=== PATIENT | male | born 1990 | race Caucasian/White ===

== ENCOUNTER 2017-02-11 16:17 | Emergency (ER) | payer MEDICAID ==
[~2017-02-11] VITALS: Ht 170.2 cm; Wt 86.0 kg
[2017-02-11] MEDS ORDERED: HYDROCODONE/ACETAMINOPHEN 5/325MG TABLET PO ONE (17:00)
[2017-02-11] MEDS ORDERED: DIAZEPAM 5 MG TABLET PO ONE (17:00)
[2017-02-11 17:22] VITALS: BP 105/65
[2017-02-11] MEDS ORDERED: METHOCARBAMOL 500MG TABLET PO ONE (18:00)
== END 2017-02-11 19:20 | disposition home or self-care (01) ==
LOC: ER 16:17
DX: M54.5 Low back pain (principal); M54.30 Sciatica, unspecified side; G89.29 Other chronic pain; F12.10 Cannabis abuse, uncomplicated
CPT/HCPCS: 72100; 99284

== ENCOUNTER 2017-11-25 16:36 | Emergency (ER) | payer MEDICAID ==
[~2017-11-25] VITALS: Ht 177.8 cm; Wt 114.0 kg
[2017-11-25 16:45] VITALS: BP 118/76
== END 2017-11-25 21:07 | disposition left against medical advice (07) ==
LOC: ER 16:45
DX: M79.602 Pain in left arm (principal); Z53.21 Procedure and treatment not carried out due to patient leaving prior to being seen by health care provider

== ENCOUNTER 2019-08-23 12:47 | Emergency (ER) | payer OTHER ==
[~2019-08-23] VITALS: Ht 185.4 cm; Wt 95.0 kg
[2019-08-23] MEDS ORDERED: KETOROLAC 15MG/ML VIAL IV ONE (14:15)
[2019-08-23] MEDS ORDERED: SODIUM CHLORIDE 0.9% 1,000 ML IV ONE (14:15)
[2019-08-23] MEDS ORDERED: LEVETIRACETAM 1000MG/100ML 100 ML IV ONE (14:15)
[2019-08-23 14:30] VITALS: BP 113/63
== END 2019-08-23 15:30 | disposition home or self-care (01) ==
LOC: ER 12:47
DX: G40.909 Epilepsy, unspecified, not intractable, without status epilepticus (principal); S00.83XA Contusion of other part of head, initial encounter; R51 Headache; X58.XXXA Exposure to other specified factors, initial encounter; Y93.89 Activity, other specified; Y92.9 Unspecified place or not applicable
CPT/HCPCS: 96365; 96375; 99283; J1885; J1953; J7030

== ENCOUNTER 2020-12-03 03:22 | Emergency (ER) | payer OTHER ==
[~2020-12-03] VITALS: Ht 170.2 cm; Wt 73.0 kg
[2020-12-03 03:36] VITALS: BP 140/55
[2020-12-03] MEDS ORDERED: ACETAMINOPHEN 325MG TABLET PO ONE (04:00)
== END 2020-12-03 05:00 | disposition home or self-care (01) ==
LOC: ER 03:22
DX: M79.642 Pain in left hand (principal); F17.290 Nicotine dependence, other tobacco product, uncomplicated; F12.10 Cannabis abuse, uncomplicated
CPT/HCPCS: 73130; 99283

== ENCOUNTER 2022-03-16 15:20 | Emergency (ER) | payer MEDICAID, OTHER ==
[~2022-03-16] VITALS: Ht 175.3 cm; Wt 104.0 kg
[2022-03-16 15:21] VITALS: BP 124/77
[2022-03-16] MEDS ORDERED: LEVETIRACETAM 500MG PREMIX 100 ML IV ONE (15:45)
[2022-03-16 16:17] LABS: BASOPHILS % 0.5 % (0.0-2.0); EOSINOPHILS % 0.8 % (0.0-5.0); HEMOGLOBIN. 15.6 g/dL (14.0-18.0); LYMPHOCYTES % 14.8 % (20.0-50.0); MEAN CORPUSCULAR HEMOGLOBIN 29.5 pg (28.0-32.0); MEAN CORPUSCULAR VOLUME 88.8 fL (80.0-94.0); MEAN PLATELET VOLUME 9.2 fl (7.4-10.4); MONOCYTES % 6.3 % (2.0-8.0); NEUTROPHILS % 77.6 % (40.0-76.0); PLATELET 313 x1000/uL (130-400); RED CELL DISTRIBUTION WIDTH 14.1 % (11.6-14.6)
[2022-03-16 16:26] LABS: CHLORIDE 106 mEq/L (98-107)
[2022-03-16 16:31] LABS: ETHANOL BLOOD < 10 mg/dL
[2022-03-16] MEDS ORDERED: KEPP500 MT (17:03)
[2022-03-16] MEDS ORDERED: LEVETIRACETAM 500MG PREMIX 100 ML IV NR (18:00)
== END 2022-03-16 18:49 ==
LOC: ER 15:20
DX: G40.909 Epilepsy, unspecified, not intractable, without status epilepticus (principal); R94.31 Abnormal electrocardiogram [ECG] [EKG]; F12.10 Cannabis abuse, uncomplicated
CPT/HCPCS: 36415; 80053; 80320; 85025; 93005; 96365; 99284; J1953; G0480

== ENCOUNTER 2025-05-23 22:16 | Emergency (ER) | payer MEDICAID ==
[~2025-05-23] VITALS: Ht 172.7 cm; Wt 95.0 kg
[~2025-05-23 22:16] MED LIST: KEPP500 MT
[2025-05-23 22:17] VITALS: BP 162/96; PULSE 110; RESP 16; TEMP 36.8; O2SAT 98
== END 2025-05-24 01:45 | disposition left against medical advice (07) ==
LOC: ER 22:16
DX: M79.604 Pain in right leg (principal); Z53.21 Procedure and treatment not carried out due to patient leaving prior to being seen by health care provider